=== PATIENT | female | born 1965 | race Caucasian/White ===

== ENCOUNTER 2018-01-17 15:23 | Emergency (ER) | payer OTHER ==
[2018-01-17] MEDS ORDERED: DIPHENHYDRAMINE HCL 25 MG CAPSULE ONE (15:52)
[2018-01-17] MEDS ORDERED: PREDNISONE 20 MG TABLET ONE (15:52)
== END 2018-01-17 16:29 | disposition home or self-care (01) ==
LOC: EDH 15:23
DX: T78.49XA Other allergy, initial encounter (principal); Z72.0 Tobacco use; W57.XXXA Bitten or stung by nonvenomous insect and other nonvenomous arthropods, initial encounter
CPT/HCPCS: 99283; Q0163